=== PATIENT | male | born 1970 | race African-American/Black ===

== ENCOUNTER 2018-01-31 06:43 | Emergency (ER) | payer OTHER ==
[~2018-01-31] VITALS: Ht 167.6 cm; Wt 109.0 kg
[2018-01-31] MEDS ORDERED: ONDANSETRON HCL 4MG/2ML INJ IV STA (09:04)
[2018-01-31] MEDS ORDERED: MORPHINE SULFATE 4 MG/ML CPJ (NOT FOR IM USE) IV STA (09:04)
[2018-01-31] MEDS ORDERED: SODIUM CHLORIDE 0.9% 1,000 ML IV ONE (09:04)
[2018-01-31 09:39] LABS: EOSINOPHILS % 2.7 % (0.0-5.0); HEMATOCRIT. 45.5 % (42.0-52.0); HEMOGLOBIN. 15.2 g/dL (14.0-18.0); LYMPHOCYTES % 29.4 % (20.0-50.0); MEAN CORPUSCULAR HEMOGLOBIN 30.9 pg (28.0-32.0); MEAN CORPUSCULAR VOLUME 92.2 fL (80.0-94.0); MEAN PLATELET VOLUME 10.3 fl (7.4-10.4); MONOCYTES % 9.5 % (2.0-8.0); NEUTROPHILS % 57.4 % (40.0-76.0); PLATELET 199 x1000/uL (130-400); RED BLOOD CELL COUNT 4.94 mill/uL (4.7-6.1); RED CELL DISTRIBUTION WIDTH 13.4 % (11.6-14.6)
[2018-01-31 09:45] LABS: PROTHROMBIN TIME 9.6 sec (9.1-11.1)
[2018-01-31 09:49] LABS: CHLORIDE 109 mEq/L (98-107)
[2018-01-31 09:55] LABS: CLARITY URINE CLEAR (CLEAR); COLOR URINE YELLOW (YELLOW); KETONES URINE NEGATIVE (NEGATIVE); LEUKOCYTE ESTERASE URINE NEGATIVE (NEGATIVE); NITRITE URINE NEGATIVE (NEGATIVE); OCCULT BLOOD URINE NEGATIVE (NEGATIVE); PROTEIN URINE NEGATIVE (NEGATIVE); SPECIFIC GRAVITY URINE 1.021 (1.005-1.030)
[2018-01-31 11:30] VITALS: BP 115/73
== END 2018-01-31 11:58 | disposition home or self-care (01) ==
LOC: ER 08:50
DX: R10.0 Acute abdomen (principal); R42 Dizziness and giddiness; I10 Essential (primary) hypertension; Z71.6 Tobacco abuse counseling; R31.0 Gross hematuria; F17.210 Nicotine dependence, cigarettes, uncomplicated; E78.00 Pure hypercholesterolemia, unspecified
CPT/HCPCS: 36415; 71045; 74176; 80053; 81003; 83605; 84145; 85025; 85610; 87040; 87086; 96361; 96374; 96375; 99285; 99406; J2270; J2405; J7030

== ENCOUNTER 2018-04-21 00:58 | Emergency (ER) | payer OTHER ==
[~2018-04-21] VITALS: Ht 165.1 cm; Wt 109.0 kg
[2018-04-21] MEDS ORDERED: ASPIRIN 325MG TABLET PO ONE (03:15)
[2018-04-21] MEDS ORDERED: MECLIZINE 25MG TABLET PO ONE (03:15)
[2018-04-21 03:34] LABS: CHLORIDE 105 mEq/L (98-107)
[2018-04-21 03:37] LABS: BASOPHILS % 0.5 % (0.0-2.0); EOSINOPHILS % 1.6 % (0.0-5.0); HEMOGLOBIN. 15.2 g/dL (14.0-18.0); LYMPHOCYTES % 27.4 % (20.0-50.0); MEAN CORPUSCULAR HEMOGLOBIN 30.7 pg (28.0-32.0); MEAN PLATELET VOLUME 9.5 fl (7.4-10.4); MONOCYTES % 13.3 % (2.0-8.0); NEUTROPHILS % 57.2 % (40.0-76.0); PLATELET 208 x1000/uL (130-400); RED BLOOD CELL COUNT 4.95 mill/uL (4.7-6.1); RED CELL DISTRIBUTION WIDTH 13.2 % (11.6-14.6)
[2018-04-21] MEDS ORDERED: IOHEXOL-350 100 ML BOTTLE ONE (04:38)
[2018-04-21 06:28] VITALS: BP 122/75
== END 2018-04-21 06:36 | disposition home or self-care (01) ==
LOC: ER 00:58
DX: R07.89 Other chest pain (principal)
CPT/HCPCS: 36415; 70498; 71045; 71275; 74174; 80053; 84484; 85025; 93005; 99284; Q9967; J8597